=== PATIENT | male | born 1950 | race Hispanic/Latino ===

== ENCOUNTER → 2018-09-30 | Outpatient (CLI) | payer MEDICARE | END | disposition home or self-care (01) | LOC: RAH 14:49 | PROVIDERS: ATTEND Family Medicine | DX: M79.89 Other specified soft tissue disorders (principal); R60.0 Localized edema | CPT/HCPCS: 93970 ==

== ENCOUNTER 2022-06-04 20:40 | Emergency (ER) | payer MEDICARE, OTHER ==
[~2022-06-04] VITALS: Ht 167.6 cm; Wt 81.2 kg
[2022-06-04] MEDS ORDERED: L.E.T. GEL 3ML SYG TP ONE (22:07)
[2022-06-04] MEDS ORDERED: TETANUS/DIPHTHERIA TOXOID [ADULT] 0.5 ML VIAL IM ONE (22:30)
[2022-06-04 23:00] VITALS: BP 135/63
== END 2022-06-04 23:10 | disposition home or self-care (01) ==
LOC: EDH 20:40
DX: S01.312A Laceration without foreign body of left ear, initial encounter (principal); W22.8XXA Striking against or struck by other objects, initial encounter; Y93.89 Activity, other specified; Y92.89 Other specified places as the place of occurrence of the external cause; Y99.8 Other external cause status
CPT/HCPCS: 12013; 90471; 90714

== ENCOUNTER 2022-06-11 15:58 | Emergency (ER) | payer OTHER ==
[~2022-06-11] VITALS: Ht 170.2 cm; Wt 86.2 kg
[2022-06-11 16:24] VITALS: BP 148/62
== END 2022-06-11 18:45 | disposition left against medical advice (07) ==
LOC: EDH 15:58
DX: S01.312D Laceration without foreign body of left ear, subsequent encounter (principal); Z53.21 Procedure and treatment not carried out due to patient leaving prior to being seen by health care provider; X58.XXXD Exposure to other specified factors, subsequent encounter

== ENCOUNTER 2022-06-12 08:40 | Emergency (ER) | payer OTHER ==
[~2022-06-12] VITALS: Ht 170.2 cm; Wt 86.2 kg
[2022-06-12 08:42] VITALS: BP 153/70
== END 2022-06-12 09:08 | disposition home or self-care (01) ==
LOC: EDH 08:40
DX: S01.312D Laceration without foreign body of left ear, subsequent encounter (principal); X58.XXXD Exposure to other specified factors, subsequent encounter
CPT/HCPCS: 99281